=== PATIENT | female | born 1955 | race Caucasian/White ===

== ENCOUNTER 2019-10-07 10:33 | Outpatient (CLI) | payer OTHER ==
[2019-10-07 12:39] LABS: BASOPHILS # (AUTO) 0.1 10^3/uL (0.0-0.1); BASOPHILS % (AUTO) 1.4 %; EOSINOPHILS # (AUTO) 0.5 10^3/uL (0.0-0.7); EOSINOPHILS % (AUTO) 8.3 %; HGB - HEMOGLOBIN 13.3 g/dL (12.0-16.0); LYMPHOCYTES # (AUTO) 1.8 10^3/uL (1.5-3.5); LYMPHOCYTES % (AUTO) 27.2 %; MEAN CORPUSCULAR HGB CONC 32.9 g/dL (32.0-36.0); MEAN CORPUSCULAR VOLUME 94.2 fL (81.0-99.0); MONOCYTES # (AUTO) 0.4 10^3/uL (0.0-1.0); MONOCYTES % (AUTO) 6.6 %; NEUTROPHILS # (AUTO) 3.7 10^3/uL (1.5-6.6); NEUTROPHILS % (AUTO) 56.2 %; PLT - PLATELET COUNT 355 10^3/uL (130-450); RED BLOOD COUNT 4.29 10^6/uL (4.20-5.40); RED CELL DISTRIBUTION WIDTH 13.2 % (12.0-15.0); WHITE BLOOD COUNT 6.5 x10^3/uL (4.8-10.8)
[2019-10-07 13:08] LABS: ALBUMIN 4.4 g/dL (3.2-5.5); ALBUMIN/GLOBULIN RATIO 1.3 (1.0-2.2); ALKALINE PHOSPHATASE 64 IU/L (42-121); ALT ALANINE AMINOTRANSFERASE 18 IU/L (10-60); AST ASPARTATE AMINOTRANSFERASE 17 IU/L (10-42); BILIRUBIN,TOTAL 0.8 mg/dL (0.2-1.0); BUN - BLOOD UREA NITROGEN 19 mg/dL (6-20); CALCIUM 9.2 mg/dL (8.5-10.3); CARBON DIOXIDE - CO2 23 mmol/L (21-32); CHLORIDE 104 mmol/L (101-111); CHOL/HDL RATIO 3.1 (<4.4); CHOLESTEROL 266 mg/dL; CREATININE 0.7 mg/dL (0.4-1.0); GFR - MDRD 85 (>89); GLUCOSE 102 mg/dL (70-100); HDL CHOLESTEROL 87 mg/dL; LDL CHOLESTEROL,CALCULATED 161 mg/dL; LDL/HDL RATIO 1.9 (<4.4); SODIUM 137 mmol/L (135-145); TOTAL PROTEIN 7.7 g/dL (6.7-8.2); VLDL CHOLESTEROL 18 mg/dL
== END 2019-10-07 23:59 | disposition home or self-care (01) ==
LOC: LAB.WCP 10:33
PROVIDERS: ATTEND Nurse Practitioner Family
DX: Z00.00 Encounter for general adult medical examination without abnormal findings (principal)
CPT/HCPCS: 36415; 80053; 80061; 83721; 84443; 85025

== ENCOUNTER 2020-03-17 19:24 | Outpatient (CLI) | payer OTHER | END 2020-03-17 19:25 | disposition home or self-care (01) | LOC: COV 19:24 | PROVIDERS: ATTEND Family Medicine | DX: R05 Cough (principal); R06.02 Shortness of breath; R06.2 Wheezing; R53.83 Other fatigue | CPT/HCPCS: 81599 ==

== ENCOUNTER 2020-07-09 07:35 | Day surgery (SDC) | payer OTHER ==
[2020-07-09] MEDS ORDERED: LACTATED RINGERS 1,000 ML IV ONE ×2 (07:50→09:35)
[2020-07-09] MEDS ORDERED: fentaNYL 250 MCG/5 ML VIAL IVP ONE (08:21)
[2020-07-09] MEDS ORDERED: MIDAZOLAM 2 MG/2 ML VIAL IVP ONE (08:21)
[2020-07-09] MEDS ORDERED: PROPOFOL 200 MG/20 ML VIAL IVP ONE (08:55)
[2020-07-09] MEDS ORDERED: fentaNYL 100 MCG/2 ML VIAL IVP PRN (09:47)
[2020-07-09] MEDS ORDERED: ATROPINE ABBOJECT 1 MG/10 ML SYRINGE IVP PRN (09:47)
[2020-07-09] MEDS ORDERED: METOCLOPRAMIDE 10 MG/2 ML VIAL IVP PRN (09:47)
[2020-07-09] MEDS ORDERED: HYDROmorphone 0.5 MG/0.5 ML SYRINGE IVP PRN (09:47)
[2020-07-09] MEDS ORDERED: NALOXONE 0.4 MG/ML VIAL IVP PRN (09:47)
[2020-07-09] MEDS ORDERED: MORPHINE 2 MG/ML CARPUJECT IVP PRN (09:47)
[2020-07-09] MEDS ORDERED: ePHEDrine 50 MG/ML VIAL IVP PRN (09:47)
[2020-07-09] MEDS ORDERED: ONDANSETRON 4 MG/2 ML VIAL IVP PRN (09:47)
[2020-07-09] MEDS ORDERED: IPRATROPIUM/ALBUTEROL 3 ML NEB INH PRN (09:48)
[2020-07-09] MEDS ORDERED: ALBUTEROL NEB 2.5 MG/3 ML INH ONE (09:57)
[2020-07-09] MEDS ORDERED: LACTATED RINGERS 1,000 ML IV SCH (10:00)
--- NOTE | 2020-07-09 10:03 | ANESTHESIA ---
Pre-Anesthesia VS, & Labs - Diagnosis history of colon polyps - Procedure colonoscopy Vital Signs: Temp Pulse Resp BP Pulse Ox 36 C L 53 L 12 93/68 100 07/09/20 09:35 07/09/20 09:55 07/09/20 09:55 07/09/20 09:55 07/09/20 09:55 Height 5 ft 4 in Weight (kg) 86.9 kg - NPO >8 hours - Is Patient ?: No Home Medications and Allergies Home Medications: Ambulatory Orders Fluticasone Propion/Salmeterol [Wixela 250-50 Inhub] 1 puffs INH BID 07/08/20 Albuterol Sulf [Ventolin Hfa Inhaler] 1 - 2 puffs INH Q4HR PRN 07/09/20 Active Medications Albuterol/Ipratropium (Duoneb) 3 ml INH Q4HR PRN PRN Reason: Wheezing Last Admin: 07/09/20 09:51 Dose: 3 ml Documented by: Atropine Sulfate () 0.5 mg IVP Q5M PRN PRN Reason: Bradycardia Stop: 07/10/20 09:47 Ephedrine Sulfate () 10 mg IVP Q5M PRN PRN Reason: HYPOTENSION Stop: 07/10/20 09:47 Fentanyl (Fentanyl) 25 - 50 mcg IVP Q5M PRN PRN Reason: BREAKTHROUGH PAIN (2nd Choice) Stop: 07/10/20 09:47 Hydromorphone HCl (Dilaudid Inj Syringe) 0.2 - 0.6 mg IVP Q5M PRN PRN Reason: PAIN (First Choice) Stop: 07/10/20 09:47 Lactated Ringer's (Lr) 1,000 mls @ 100 mls/hr IV .Q10H [place] Stop: 07/09/20 19:59 Metoclopramide HCl (Reglan Inj) 10 mg IVP Q6HR PRN PRN Reason: N/V not relieved by Zofran Morphine Sulfate (Morphine (Carpuject)) 2 - 4 mg IVP Q5M PRN PRN Reason: PAIN (3rd Choice) Stop: 07/10/20 09:47 Naloxone HCl (Narcan) 0.1 mg IVP Q2M PRN PRN Reason: RESP RATE <8 Stop: 07/10/20 09:47 Ondansetron HCl (Zofran Inj) 4 mg IVP ONCE PRN PRN Reason: N/V (First Choice) Stop: 07/10/20 09:47 Fluticasone Propion/Salmeterol [Wixela 250-50 Inhub] 1 puffs INH BID 07/08/20 Albuterol Sulf [Ventolin Hfa Inhaler] 1 - 2 puffs INH Q4HR PRN 07/09/20 Allergies/Adverse Reactions: Allergies Allergy/AdvReac Type Severity Reaction Status Date / Time No Known Drug Allergies Allergy Verified 07/08/20 14:01 Anes History & Medical History - Anesthetic History Anesthesia Complications: reports: No previous complications - Medical History Cardiovascular: reports: None Pulmonary: reports: Asthma, COPD Gastrointestinal: reports: Colon polyps, Hemorrhoids Urinary: reports: Kidney stones Musculoskeletal: reports: None Endocrine/Autoimmune: reports: None Skin: reports: None - Surgical History General: Colonoscopy Gynecologic: Hysterectomy Orthopedic: Arthroscopic surgery Exam General: Cooperative, Moderate distress Dental: WNL Mallampati classification: II Thyromental Distance: greater than 6 cm Respiratory: Lungs clear Cardiovascular: Regular rate Plan Anesthesia Type: Total IV Consent for Procedure(s) Verified and Reviewed: Yes Code Status: Attempt Resuscitation ASA classification: 3-Severe systemic disease Is this case an emergency?: No
[2020-07-09 10:21] VITALS: BP 118/67
--- NOTE | 2020-07-09 11:31 | ANESTHESIA POST OP EVALUATION ---
Anesthesia Post Eval - Post Anesthesia Eval Vitals: Last Vital Signs Temp 36.2 C L 07/09/20 10:17 Pulse 57 L 07/09/20 10:17 Resp 12 07/09/20 10:17 BP 118/67 07/09/20 10:17 Pulse Ox 98 07/09/20 10:17 CV Function Including HR & BP: positive: Stable Pain Control: positive: Satisfactory Nausea & Vomiting: positive: Negative Mental Status: positive: Patient Participates Respiratory Status: Airway Patent, Other (wheezing resolved after duoneb) Hydration Status: Satisfactory Anesthesia Complications: positive: None
== END 2020-07-09 07:36 | disposition home or self-care (01) ==
LOC: SDS 07:35
PROVIDERS: ATTEND Surgery
PROC: 0DBM8ZZ Excision of Descending Colon, Via Natural or Artificial Opening Endoscopic (ICD-10-PCS; 2020-07-09)
PROC: 0DBP8ZZ Excision of Rectum, Via Natural or Artificial Opening Endoscopic (ICD-10-PCS; 2020-07-09)
PROC: 0DBN8ZZ Excision of Sigmoid Colon, Via Natural or Artificial Opening Endoscopic (ICD-10-PCS; principal; 2020-07-09 08:45)
DX: Z12.11 Encounter for screening for malignant neoplasm of colon (principal); J44.9 Chronic obstructive pulmonary disease, unspecified; D12.7 Benign neoplasm of rectosigmoid junction; D12.4 Benign neoplasm of descending colon; D12.5 Benign neoplasm of sigmoid colon; K57.30 Diverticulosis of large intestine without perforation or abscess without bleeding; Z79.52 Long term (current) use of systemic steroids; Z79.891 Long term (current) use of opiate analgesic; Z87.891 Personal history of nicotine dependence
CPT/HCPCS: 45380; 45385; J3010; J7120

== ENCOUNTER 2020-09-20 13:58 | Emergency (ER) | payer OTHER ==
--- NOTE | 2020-09-20 14:26 | XRAY Report ---
PROCEDURE: Chest 1 View X-Ray INDICATIONS: Chest pain TECHNIQUE: One view of the chest was acquired. COMPARISON: None. FINDINGS: Surgical changes and devices: None. Lungs and pleura: Trace right-sided pleural effusion. Subtle increased opacification noted in the rig ht lung base which could represent atelectasis or pneumonia. Mediastinum: Mediastinal contours appear normal. Heart size is normal. Bones and chest wall: No suspicious bony lesions. Overlying soft tissues appear unremarkable. IMPRESSION: 1. Trace right-sided pleural effusion. 2. Subtle increased right basilar opacification compatible with atelectasis versus developing pneumon ia. Reviewed by: Senait Fernandes MD, PhD on 09/20/2020 2:25 PM PST Approved by: Senait Fernandes MD, PhD on 09/20/2020 2:25 PM PST Station ID: [id number]
--- NOTE | 2020-09-20 15:11 | ED Physician Documentation ---
PD HPI CHEST PAIN - Stated complaint Stated Complaint: RACING HEART - Chief complaint Chief Complaint: Cardiac - History obtained from History obtained from: Patient - History of Present Illness Timing - onset: How many hours ago (2), Today Timing - onset during: Light activity Timing - duration: Minutes (10) Timing - details: Abrupt onset, Now resolved Quality: Aching. No: Pain Location: Substernal Radiation: No: Neck, Back Improved by: No: Rest Worsened by: No: Inspiration, Movement Associated symptoms: Palpitations (feeling of fast heart rate, and tried to take pulse and it was about 120 bpm. Lasted 10 minutes. Had used Albuterol about 3-4 hours prior and felt okay then. [place] weak with it, but no near syncope per se.). No: Nausea Similar symptoms before: No diagnosis (had a similar episode 3 days ago lasting also about 10 minutes. Had used ALbuterol then about 3 hours prior as well. Not exerting at time of symptoms.) Recently seen: Not recently seen Review of Systems Constitutional: denies: Fever, Chills Nose: denies: Rhinorrhea / runny nose, Congestion Throat: denies: Sore throat Cardiac: reports: Palpitations. denies: Chest pain / pressure, Pedal edema, Calf pain Respiratory: denies: Cough GI: denies: Abdominal Pain, Nausea, Diarrhea Skin: denies: Rash, Lesions Musculoskeletal: denies: Neck pain, Back pain, Extremity swelling Neurologic: reports: Generalized weakness (just during the episode, feeling okay otherwise.). denies: Focal weakness, Numbness Psychiatric: denies: Anxiety PD PAST MEDICAL HISTORY - Past Medical History Cardiovascular: None Respiratory: Asthma, COPD Endocrine/Autoimmune: None GI: Colon polyps, Hemorrhoids : Kidney stones HEENT: None Psych: None Musculoskeletal: None Derm: None - Past Surgical History General: Colonoscopy Ortho: Arthroscopic surgery /[employer]: Hysterectomy - Present Medications Home Medications: Ambulatory Orders Medication Instructions Recorded Confirmed Fluticasone Propion/Salmeterol 1 puffs INH BID 07/08/20 07/09/20 [Wixela 250-50 Inhub] Albuterol Sulf [Ventolin Hfa 1 - 2 puffs INH Q4HR PRN 07/09/20 07/09/20 Inhaler] Levalbuterol [Xopenex] 2 puffs INH Q4-6H #1 inhaler 09/20/20 - Allergies Allergies/Adverse Reactions: Allergies Allergy/AdvReac Type Severity Reaction Status Date / Time No Known Drug Allergies Allergy Verified 09/20/20 14:05 - Living Situation Living Arrangement: reports: At home - Social History Does the pt smoke?: No Does the pt drink ETOH?: Yes ETOH Use: Wine (only 1-2 times per week. ) Does the pt have substance abuse?: No PD ED PE NORMAL - Vitals Vital signs reviewed: Yes - General General: Alert and oriented X 3, No acute distress, Well developed/nourished - HEENT HEENT: Pharynx benign - Neck Neck: Supple, no meningeal sign, No adenopathy, Thyroid normal - Cardiac Cardiac: RRR, No murmur - Respiratory Respiratory: No respiratory distress, Clear bilaterally - Abdomen Abdomen: Normal bowel sounds, Soft, Non tender, Non distended - Back Back: No CVA TTP - Derm Derm: Normal color, Warm and dry - Extremities Extremities: No tenderness to palpate, Normal ROM s pain, No edema - Neuro Neuro: Alert and oriented X 3, No motor deficit, Normal speech Results - Vitals Vitals: Vital Signs - 24 hr 09/20/20 09/20/20 09/20/20 14:05 16:00 16:03 Temperature 36.7 C Heart Rate 70 64 65 Respiratory 16 19 19 Rate Blood Pressure 158/82 H 131/89 H 153/86 H O2 Saturation 97 97 98 09/20/20 16:30 Temperature Heart Rate 64 Respiratory 17 Rate Blood Pressure 141/80 H O2 Saturation 99 Oxygen O2 Source Room air - Labs Labs: Laboratory Tests 09/20/20 09/20/20 09/20/20 15:28 15:28 15:28 WBC 7.1 RBC 4.23 Hgb 13.4 Hct 40.3 MCV 95.3 MCH 31.7 H MCHC 33.3 RDW 12.6 Plt Count 329 MPV 9.5 Neut # (Auto) 4.0 Lymph # (Auto) 2.1 [place] # (Auto) 0.6 Eos # (Auto) 0.3 Baso # (Auto) 0.1 Absolute Nucleated RBC 0.00 Nucleated RBC % 0.0 Sodium 137 Potassium 4.1 Chloride 100 L Carbon Dioxide 23 Anion Gap 14.0 H BUN 23 H Creatinine 0.9 Estimated GFR (MDRD) 63 L Glucose 89 Calcium 9.6 Magnesium Total Bilirubin 0.6 AST 21 ALT 22 Alkaline Phosphatase 69 Troponin I High Sens 24.2 H* Total Protein 6.9 Albumin 4.1 Globulin 2.8 Albumin/Globulin Ratio 1.5 Lipase 26 TSH 09/20/20 09/20/20 15:28 15:28 WBC RBC Hgb Hct MCV MCH MCHC RDW Plt Count MPV Neut # (Auto) Lymph # (Auto) [place] # (Auto) Eos # (Auto) Baso # (Auto) Absolute Nucleated RBC Nucleated RBC % Sodium Potassium Chloride Carbon Dioxide Anion Gap BUN Creatinine Estimated GFR (MDRD) Glucose Calcium Magnesium 2.2 Total Bilirubin AST ALT Alkaline Phosphatase Troponin I High Sens Total Protein Albumin Globulin Albumin/Globulin Ratio Lipase TSH 1.72 PD MEDICAL DECISION MAKING - ED course Complexity details: considered differential ([id number] for possible episodic/ paroxysmal atrial fib. Or could be just tachycardia for other resaons. Consider side effect of albtuerol, though 3-4 hours later would be unusual.), d/w patient Departure - Departure Disposition: 01 Home, Self Care Clinical Impression: Tachycardia Condition: Stable Record reviewed to determine appropriate education?: Yes Follow-Up: JASPREET EPRALTA, MSN, [employer] [Primary Care Provider] - Prescriptions: Levalbuterol [Xopenex] 2 puffs INH Q4-6H #1 inhaler Comments: Stay well-hydrated. Follow-up with your primary care regarding possible Holter monitor to record your heart rhythm over a week or so and see if other help episodes happen. Otherwise stay well-hydrated. We can swap your albuterol for leave albuterol and see if that is part of it. Minimize coffee. Return as needed. Discharge Date/Time: 09/20/20 17:01
[2020-09-20 15:40] LABS: BASOPHILS # (AUTO) 0.1 10^3/uL (0.0-0.1); EOSINOPHILS # (AUTO) 0.3 10^3/uL (0.0-0.7); EOSINOPHILS % (AUTO) 4.5 %; HGB - HEMOGLOBIN 13.4 g/dL (12.0-16.0); LYMPHOCYTES # (AUTO) 2.1 10^3/uL (1.5-3.5); LYMPHOCYTES % (AUTO) 29.7 %; MEAN CORPUSCULAR HEMOGLOBIN 31.7 pg (27.0-31.0); MEAN CORPUSCULAR HGB CONC 33.3 g/dL (32.0-36.0); MEAN CORPUSCULAR VOLUME 95.3 fL (81.0-99.0); MEAN PLATELET VOLUME 9.5 fL (7.9-10.8); MONOCYTES # (AUTO) 0.6 10^3/uL (0.0-1.0); MONOCYTES % (AUTO) 7.9 %; NEUTROPHILS % (AUTO) 56.6 %; PLT - PLATELET COUNT 329 10^3/uL (130-450); RED BLOOD COUNT 4.23 10^6/uL (4.20-5.40); RED CELL DISTRIBUTION WIDTH 12.6 % (12.0-15.0); WHITE BLOOD COUNT 7.1 x10^3/uL (4.8-10.8)
[2020-09-20 15:51] LABS: ALBUMIN 4.1 g/dL (3.2-5.5); ALBUMIN/GLOBULIN RATIO 1.5 (1.0-2.2); BILIRUBIN,TOTAL 0.6 mg/dL (0.2-1.0); CALCIUM 9.6 mg/dL (8.5-10.3); CREATININE 0.9 mg/dL (0.4-1.0); TOTAL PROTEIN 6.9 g/dL (6.7-8.2)
[2020-09-20 16:40] VITALS: BP 141/80
== END 2020-09-20 17:01 | disposition home or self-care (01) ==
LOC: ED 13:58
DX: R00.0 Tachycardia, unspecified (principal); R07.89 Other chest pain
CPT/HCPCS: 36415; 71045; 80053; 83690; 83735; 84443; 84484; 85025; 93005; 99284

== ENCOUNTER 2021-03-22 10:04 | Outpatient (CLI) | payer OTHER ==
--- NOTE | 2021-03-22 16:58 | XRAY Report ---
PROCEDURE: Wrist 3 View RT INDICATIONS: R WRIST PX TECHNIQUE: 3 views of the wrist were acquired. COMPARISON: None FINDINGS: Bones: No fractures or dislocations. No suspicious bony lesions. First CMC degenerative narrowing is present. Mild radiocarpal degenerative narrowing is present. Scaphoid view: Not obtained. Soft tissues: No suspicious soft tissue calcifications. IMPRESSION: Radial carpal first CMC arthritic change. Reviewed by: Noa Wheeler MD on 03/22/2021 4:56 PM PDT Approved by: Noa Wheeler MD on 03/22/2021 4:56 PM PDT Station ID: [id number]
== END 2021-03-22 10:05 | disposition home or self-care (01) ==
LOC: DI.N 10:04
PROVIDERS: ATTEND Nurse Practitioner Family
DX: M18.11 Unilateral primary osteoarthritis of first carpometacarpal joint, right hand (principal)

== ENCOUNTER 2021-06-01 09:41 | Outpatient (CLI) | payer OTHER | END 2021-06-01 23:59 | disposition home or self-care (01) | LOC: LAB.N 09:41 | PROVIDERS: ATTEND Emergency Medicine | DX: Z20.822 Contact with and (suspected) exposure to COVID-19 (principal) ==

== ENCOUNTER 2021-06-01 10:23 | Outpatient (CLI) | payer OTHER ==
--- NOTE | 2021-06-01 12:10 | XRAY Report ---
PROCEDURE: Chest 2 View X-Ray INDICATIONS: COPD, ACUTE EXACERBATION TECHNIQUE: 2 view(s) of the chest. COMPARISON: None. FINDINGS: Surgical changes and devices: None. Lungs and pleura: No pleural effusions or pneumothorax. Mild prominence of the interstitium. Mediastinum: Mediastinal contours are normal. Heart size is normal. Bones and chest wall: No suspicious bony abnormalities. Soft tissues appear unremarkable. IMPRESSION: Mild interstitial prominence which could represent chronic interstitial disease, pulmonary edema or atypical pneumonia. Reviewed by: Senait Fernandes MD, PhD on 06/01/2021 12:08 PM PDT Approved by: Senait Fernandes MD, PhD on 06/01/2021 12:08 PM PDT Station ID: [id number]
== END 2021-06-01 23:59 | disposition home or self-care (01) ==
LOC: DI.N 10:23
PROVIDERS: ATTEND Emergency Medicine
DX: R91.8 Other nonspecific abnormal finding of lung field (principal); Z20.822 Contact with and (suspected) exposure to COVID-19

== ENCOUNTER 2021-06-27 15:32 | Outpatient (CLI) | payer OTHER ==
[2021-06-27 18:00] LABS: BILIRUBIN,URINE NEGATIVE (NEGATIVE); GLUCOSE, URINE (UA) NEGATIVE (NEGATIVE); KETONES,URINE (UA) NEGATIVE (NEGATIVE); LEUKOCYTE ESTERASE, URINE NEGATIVE (NEGATIVE); NITRITE,URINE NEGATIVE (NEGATIVE); OCCULT BLOOD,URINE NEGATIVE (NEGATIVE); PH,URINE 5.5 PH (5.0-7.5); PROTEIN,URINE NEGATIVE (NEGATIVE); UROBILINOGEN,URINE 0.2 (NORMAL) E.U./dL (NORMAL)
[2021-06-27 18:04] LABS: BASOPHILS % (AUTO) 0.6 %; EOSINOPHILS # (AUTO) 0.5 10^3/uL (0.0-0.7); EOSINOPHILS % (AUTO) 6.8 %; HCT - HEMATOCRIT 38.9 % (37.0-47.0); HGB - HEMOGLOBIN 12.9 g/dL (12.0-16.0); LYMPHOCYTES # (AUTO) 1.8 10^3/uL (1.5-3.5); LYMPHOCYTES % (AUTO) 25.6 %; MEAN CORPUSCULAR HEMOGLOBIN 31.4 pg (27.0-31.0); MEAN CORPUSCULAR HGB CONC 33.2 g/dL (32.0-36.0); MEAN CORPUSCULAR VOLUME 94.6 fL (81.0-99.0); MONOCYTES # (AUTO) 0.6 10^3/uL (0.0-1.0); MONOCYTES % (AUTO) 7.9 %; NEUTROPHILS # (AUTO) 4.1 10^3/uL (1.5-6.6); NEUTROPHILS % (AUTO) 58.8 %; PLT - PLATELET COUNT 362 10^3/uL (130-450); RED BLOOD COUNT 4.11 10^6/uL (4.20-5.40); RED CELL DISTRIBUTION WIDTH 13.2 % (12.0-15.0); WHITE BLOOD COUNT 6.9 x10^3/uL (4.8-10.8)
[2021-06-27 18:20] LABS: ALBUMIN 4.1 g/dL (3.2-5.5); ALBUMIN/GLOBULIN RATIO 1.5 (1.0-2.2); ALKALINE PHOSPHATASE 96 IU/L (42-121); ALT ALANINE AMINOTRANSFERASE 16 IU/L (10-60); AST ASPARTATE AMINOTRANSFERASE 16 IU/L (10-42); BILIRUBIN,TOTAL 0.7 mg/dL (0.2-1.0); BUN - BLOOD UREA NITROGEN 17 mg/dL (6-20); CALCIUM 9.4 mg/dL (8.5-10.3); CARBON DIOXIDE - CO2 24 mmol/L (21-32); CHLORIDE 102 mmol/L (101-111); CHOL/HDL RATIO 3.3 (<4.4); CHOLESTEROL 257 mg/dL; CREATININE 0.8 mg/dL (0.4-1.0); GFR - MDRD 72 (>89); GLUCOSE 93 mg/dL (70-100); HDL CHOLESTEROL 79 mg/dL; LDL CHOLESTEROL,CALCULATED 149 mg/dL; LDL/HDL RATIO 1.9 (<4.4); POTASSIUM 4.1 mmol/L (3.5-5.0); SODIUM 135 mmol/L (135-145); TOTAL PROTEIN 6.9 g/dL (6.7-8.2); TRIGLYCERIDES 147 mg/dL; VLDL CHOLESTEROL 29 mg/dL
[2021-06-27 18:24] LABS: BACTERIA,URINE None Seen /HPF (None Seen); CLARITY,URINE CLEAR (CLEAR); RBC,URINE None Seen /HPF (0-5); SQUAMOUS EPITHELIAL CELL,UR RARE Squamous (<= Few); WBC,URINE 0-3 /HPF (0-5)
[2021-06-27 18:29] LABS: THYROID STIMULATING HORMONE 2.12 uIU/mL (0.34-5.60)
[2021-06-27 21:16] LABS: ESTIMATED AVERAGE GLUCOSE 131 mg/dL (70-100); HEMOGLOBIN A1c% 6.2 % (4.27-6.07)
== END 2021-06-27 23:59 | disposition home or self-care (01) ==
LOC: LAB.WCP 15:32
PROVIDERS: ATTEND Nurse Practitioner
DX: I10 Essential (primary) hypertension (principal); E78.5 Hyperlipidemia, unspecified; R73.01 Impaired fasting glucose; R53.83 Other fatigue
CPT/HCPCS: 36415; 80053; 80061; 81001; 83036; 83721; 84443; 85025; 87086

== ENCOUNTER 2021-12-08 08:00 | Outpatient (CLI) | payer OTHER | END 2021-12-08 23:59 | LOC: LAB.N 08:00 | PROVIDERS: ATTEND Physician Assistant Medical | DX: R05.9 Cough, unspecified (principal); Z20.822 Contact with and (suspected) exposure to COVID-19 ==

== ENCOUNTER 2022-07-10 07:14 | Outpatient (CLI) | payer OTHER ==
[2022-07-10 12:04] LABS: BASOPHILS # (AUTO) 0.1 10^3/uL (0.0-0.1); BASOPHILS % (AUTO) 1.1 %; EOSINOPHILS # (AUTO) 0.5 10^3/uL (0.0-0.7); EOSINOPHILS % (AUTO) 8.4 %; HGB - HEMOGLOBIN 13.5 g/dL (12.0-16.0); LYMPHOCYTES # (AUTO) 1.7 10^3/uL (1.5-3.5); LYMPHOCYTES % (AUTO) 26.6 %; MEAN CORPUSCULAR HGB CONC 32.9 g/dL (32.0-36.0); MEAN PLATELET VOLUME 10.5 fL (7.9-10.8); MONOCYTES # (AUTO) 0.4 10^3/uL (0.0-1.0); MONOCYTES % (AUTO) 7.1 %; NEUTROPHILS # (AUTO) 3.5 10^3/uL (1.5-6.6); NEUTROPHILS % (AUTO) 56.5 %; PLT - PLATELET COUNT 349 10^3/uL (130-450); RED BLOOD COUNT 4.36 10^6/uL (4.20-5.40); RED CELL DISTRIBUTION WIDTH 13.2 % (12.0-15.0); WHITE BLOOD COUNT 6.2 x10^3/uL (4.8-10.8)
[2022-07-10 13:44] LABS: ALBUMIN 4.1 g/dL (3.2-5.5); ALBUMIN/GLOBULIN RATIO 1.5 (1.0-2.2); ALKALINE PHOSPHATASE 59 IU/L (42-121); ALT ALANINE AMINOTRANSFERASE 16 IU/L (10-60); AST ASPARTATE AMINOTRANSFERASE 16 IU/L (10-42); BILIRUBIN,TOTAL 0.7 mg/dL (0.2-1.0); BUN - BLOOD UREA NITROGEN 20 mg/dL (6-20); CALCIUM 9.4 mg/dL (8.5-10.3); CARBON DIOXIDE - CO2 24 mmol/L (21-32); CHLORIDE 105 mmol/L (101-111); CHOL/HDL RATIO 3.1 (<4.4); CHOLESTEROL 247 mg/dL; CREATININE 0.8 mg/dL (0.4-1.0); GFR - MDRD 72 (>89); GLUCOSE 106 mg/dL (70-100); HDL CHOLESTEROL 80 mg/dL; LDL CHOLESTEROL,CALCULATED 144 mg/dL; LDL/HDL RATIO 1.8 (<4.4); POTASSIUM 4.5 mmol/L (3.5-5.0); SODIUM 138 mmol/L (135-145); TOTAL PROTEIN 6.9 g/dL (6.7-8.2); TRIGLYCERIDES 115 mg/dL; VLDL CHOLESTEROL 23 mg/dL
[2022-07-10 13:53] LABS: THYROID STIMULATING HORMONE 2.51 uIU/mL (0.34-5.60)
== END 2022-07-10 07:15 | disposition home or self-care (01) ==
LOC: LAB.N 07:14
PROVIDERS: ATTEND Nurse Practitioner
DX: I10 Essential (primary) hypertension (principal); R53.83 Other fatigue
CPT/HCPCS: 36415; 80053; 80061; 83721; 84443; 85025

== ENCOUNTER 2022-08-15 08:00 | Outpatient (CLI) | payer OTHER | END 2022-08-15 23:59 | disposition home or self-care (01) | LOC: LAB.N 08:00 | PROVIDERS: ATTEND Emergency Medicine | DX: L02.214 Cutaneous abscess of groin (principal) | CPT/HCPCS: 87070; 87205 ==

== ENCOUNTER 2022-08-28 08:08 | Outpatient (CLI) | payer OTHER ==
--- NOTE | 2022-08-28 13:26 | DEXA Report ---
PROCEDURE: Dexa Spine and/or Hip INDICATIONS: POSTMENOPAUSAL TECHNIQUE: Dual energy x-ray absorptiometry (DXA) was performed on a HashTip System. Regions measur ed are the AP Spine, femoral neck, and if needed forearm. COMPARISON: None. FINDINGS: Lumbar Spine: Bone Mineral Density 0.978 g/cm/cm,T score -1.7, osteopenia Left Hip: Bone Mineral Density 0.714 g/cm/cm,T score -2.3, osteopenia Left Femoral Neck: Bone Mineral Density 0.681 g/cm/cm, T score -2.6, osteoporosis IMPRESSION: Osteoporosis on the basis of left femoral neck bone mineral density. Patients with diagnosis of osteoporosis or osteopenia should have regular bone mineral density assess ment. For those eligible for Medicare, routine testing is allowed once every 2 years. Testing frequ ency can be increased for patients who have rapidly progressing disease or for those who are receivin g medical therapy to restore bone mass. Reviewed by: Casimiro Helton MD on 08/28/2022 1:25 PM PDT Approved by: Casimiro Helton MD on 08/28/2022 1:25 PM PDT Station ID: [id number]
== END 2022-08-28 08:09 | disposition home or self-care (01) ==
LOC: DI 08:08
PROVIDERS: ATTEND Nurse Practitioner
DX: M81.0 Age-related osteoporosis without current pathological fracture (principal)